=== PATIENT | female | born 1950 | race Caucasian/White ===

== ENCOUNTER 2019-09-07 12:18 | Emergency (ER) | payer BC ==
[~2019-09-07] VITALS: Ht 165.1 cm; Wt 50.8 kg
[2019-09-07] MEDS ORDERED: COZAAR 25 MG TA25 M1 PO (12:35)
[2019-09-07] MEDS ORDERED: NORVASC10 MG PO (12:35)
[2019-09-07] MEDS ORDERED: NORCO 5-325 TA1 EAC2 PO (14:11)
[2019-09-07 14:52] VITALS: BP 139/114
== END 2019-09-07 14:54 | disposition home or self-care (01) ==
LOC: M.ERS 12:18
DX: S82.842A Displaced bimalleolar fracture of left lower leg, initial encounter for closed fracture (principal); I10 Essential (primary) hypertension; W10.8XXA Fall (on) (from) other stairs and steps, initial encounter; Y93.89 Activity, other specified; Y92.89 Other specified places as the place of occurrence of the external cause; Y99.8 Other external cause status

== ENCOUNTER → 2021-01-19 | Outpatient (CLI) | payer OTHER ==
[~2021-01-19] MED LIST: COZAAR 25 MG TA25 M1 PO; NORCO 5-325 TA1 EAC2 PO; NORVASC10 MG PO
== END ==
LOC: M.RAD 12:19
PROVIDERS: ATTEND Family Medicine
DX: M81.0 Age-related osteoporosis without current pathological fracture (principal)